=== PATIENT | male | born 1965 | race Hispanic/Latino ===

== ENCOUNTER 2020-12-14 09:17 | Outpatient (CLI) | payer OTHER ==
[2020-12-14] MEDS ORDERED: ALBUTEROL 2.5 MG/3 ML NEBU IH ONE (10:39)
== END 2020-12-14 09:18 | disposition home or self-care (01) ==
LOC: PF 09:17
PROVIDERS: ATTEND Internal Medicine
DX: R06.02 Shortness of breath (principal); F17.210 Nicotine dependence, cigarettes, uncomplicated
CPT/HCPCS: 94640; A9270